=== PATIENT | female | born 1970 | race Two or more races ===

== ENCOUNTER → 2025-06-19 | Outpatient (CLI) | payer BC | END | disposition home or self-care (01) | LOC: LAB 13:27 | PROVIDERS: ATTEND Internal Medicine | DX: Z12.11 Encounter for screening for malignant neoplasm of colon (principal) | CPT/HCPCS: 82270 ==

== ENCOUNTER 2025-07-02 07:58 | Outpatient (CLI) | payer BC | END 2025-07-02 17:00 | disposition home or self-care (01) | LOC: LAB 07:58 | PROVIDERS: ATTEND Internal Medicine | DX: R14.2 Eructation (principal) | CPT/HCPCS: 83013 ==